=== PATIENT | male | born 1960 | race Caucasian/White ===

== ENCOUNTER 2017-02-27 09:13 | Emergency (ER) | payer SELFPAY ==
[2017-02-27 09:21] VITALS: BP 158/90
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
[2017-02-27] MEDS ORDERED: Bacitracin/Neomycin/Polymyxin B Oint 0.9 GM U/D Packet TOP ONE (09:24)
[2017-02-27] MEDS ORDERED: Diphtheria,Pertussis(Acell),Tetanus Vaccine 0.5 ML SDV IM ONE (09:24)
[2017-02-27] MEDS ORDERED: Lisinopril 20 MG Tab ONE (10:08)
[2017-02-28] MEDS ORDERED: Lisinopril 10 MG Tab PO ONE (09:23)
== END 2017-02-27 10:25 | disposition home or self-care (01) ==
LOC: LL.ED 09:13
DX: S01.81XA Laceration without foreign body of other part of head, initial encounter (principal); Z23 Encounter for immunization; I10 Essential (primary) hypertension; E78.5 Hyperlipidemia, unspecified; Y99.0 Civilian activity done for income or pay
CPT/HCPCS: 12013; 90471; 90715; 99283; A9270